=== PATIENT | female | born 1970 | race Caucasian/White ===

== ENCOUNTER 2021-06-28 08:06 | Emergency (ER) | payer OTHER ==
[~2021-06-28] VITALS: Ht 157.5 cm; Wt 81.6 kg
[2021-06-28 08:07] VITALS: BP 156/94
--- NOTE | 2021-06-28 08:13 | NUR ---
ARRIVAL PATIENT ARRIVED TO ED4 VIA GURNEY BY [facility], C/O NEAR SYNCOPAL EPISODE TODAY WHILE AT WORK, PATIENT STATES SHE BECAME DIZZY AND FELT LIKE SHE WAS GOING TO PASS OUT, CALLED EMS, EMS INITIATED A 18G TO LEFT AC WITH NORMAL SALINE INFUSING, GLUCOSE 90 PER EMS, BROUGHT TO THE ED FOR EVAL, DOCTOR FORREST NOTIFIED OF PATIENT'S ARRIVAL.
--- NOTE | 2021-06-28 08:44 | ER.PDOC ---
General Chief Complaint: Syncope Stated Complaint: NEAR SYNCOPE Time seen by MD: 08:27 Source: patient Exam Limitations: no limitations History of Present Illness Initial Comments This is a 50-year-old female who comes to the emergency department complaining of not feeling well. She states she woke up this way this morning with dizziness and feeling like she is about to pass out. Someone told her at work that she looked pale. She could feel her heart beating in her chest. She d enied any chest pain, she did state that she had some shortness of breath over the past couple of days. She has had cough and cold symptoms for these last 2 days also. Prior history of hypertension for which she is taking losartan and hydrochlorothiazide. She denies any allergies.The patient is a smoker of nearly a pack a dayNo family history of coronary artery disease. Symptoms Prior to Episode: none, lightheadedness Loss of Consciousness: No Loss of Consciousness Location of Injury: None Current Symptoms: back to normal Allergies: Coded Allergies: coconut (Verified Allergy, Unknown, 06/28/21) Past Medical History Medical History: hypertension Surgical History: tonsillectomy Social History Alcohol Use: occassionally Drug Use: none Review of Systems Constitutional: denies no symptoms reported, denies see HPI, denies chills, denies diaphoresis, denies fever, denies malaise, denies weakness, denies other EENTM: denies no symptoms reported, denies see HPI, denies eye pain, denies blurred vision, denies tearing, denies double vision, denies ear pain, denies ear discharge, denies nose pain, denies nose congestion, denies throat pain, denies throat swelling, denies mouth pain, denies mouth swelling, denies other Respiratory: denies no symptoms reported, denies see HPI; cough; denies orthopnea; shortness of breath; denies stridor, denies wheezing, denies other Cardiovascular: denies no symptoms reported, denies see HPI, denies chest pain, denies edema, denies palpitations, denies syncope, denies other Gastrointestinal: denies no symptoms reported, denies see HPI, denies abdominal pain, denies constipation, denies diarrhea, denies nausea, denies vomiting, denies other Genitourinary: denies no symptoms reported, denies see HPI, denies discharge, denies dysuria, denies frequency, denies hematuria, denies pain, denies other Musculoskeletal: denies no symptoms reported, denies see HPI, denies back pain, denies gout, denies joint pain, denies joint swelling, denies muscle pain, denies muscle stiffness, denies neck pain, denies other Skin: denies no symptoms reported, denies see HPI, denies change in color, denies change in hair/nails, denies dryness, denies lesions, denies lumps, denies rash, denies other Psychiatric/Neurological: denies no symptoms reported, denies see HPI, denies anxiety, denies depressed, denies emotional problems, denies headache, denies numbness, denies paresthesia, denies pre-existing deficit, denies seizure, denies tingling, denies tremors; weakness; denies other All Other Systems: Reviewed and Negative Physical Exam General Appearance: WD/WN, Moderate Distress HEENT: PERRL/EOMI, Normal ENT Inspection, TMs Normal, Pharynx Normal Neck: Non-Tender, Full Range of Motion, Supple, Normal Inspection Cardiovascular/Respiratory: Regular Rate, Rhythm, No M/R/G, Normal Peripheral Pulses, No JVD, No Respiratory Distress, Other (Crackles in the bases bilaterally right greater than left) Gastrointestinal: Normal Bowel Sounds, No Organomegaly, No Pulsatile Mass, Non Tender, Soft Extremities: Normal Range of Motion, Non-Tender, Normal Inspection, No Pedal Edema, No Calf Tenderness, Normal Capillary Refill Psychiatric: Alert, Oriented x 3 Cranial Nerves: Normal Hearing, Normal Speech, PERRL Coordination/Gait: Normal Finger to Nose, Normal Gait, Negative Romberg's Sign Motor/Sensory: No Motor Deficit, No Sensory Deficit, No Pronator Drift, Negative Babinski's Sign Skin: Normal Color, Warm/Dry Lymphatic: No Adenopathy Results/Orders Results/Orders Orders - THEA CLAYTON MD Cbc With Auto Diff (06/28/21 08:38) Comprehensive Metabolic Panel (06/28/21 08:38) D-Dimer (06/28/21 08:38) Xr Chest 1v (06/28/21 08:38) Ekg-Routine (06/28/21 08:38) Covid19 Antigen Winsome Cindy (06/28/21 08:38) Vital Signs Date Time Temp Pulse Resp B/P (MAP) Pulse Ox O2 Delivery O2 Flow Rate FiO2 06/28/21 08:07 97.1 93 18 06/28/21 08:07 97.1 93 18 156/94 (114) 97 Room Air 06/28/21 08:07 97.1 93 18 97 Laboratory Tests Test 06/28/21 08:45 White Blood Count 4.0 10^3/uL (4.5-11.0) L Red Blood Count 3.81 10^6/uL (4.00-5.20) L Hemoglobin 14.2 g/dL (12.0-15.0) Hematocrit 41.1 % (36.0-46.0) Mean Corpuscular Volume 107.9 fL (78-100) H Mean Corpuscular Hemoglobin 37.3 pg (26-34) H Mean Corpuscular Hemoglobin Concent 34.5 g/dL (33-36.5) Red Cell Distribution Width 12.4 % (11.5-14.5) Platelet Count 204 10^3/uL (150-400) Mean Platelet Volume 9.1 fL (7.8-11.0) Neutrophils (%) (Auto) 75.0 % (41.0-85.0) Lymphocytes (%) (Auto) 18.3 % (24.0-44.0) L Monocytes (%) (Auto) 5.8 % (5.0-12.0) Neutrophils # (Auto) 3.0 10^3/uL (1.8-7.7) Lymphocytes # (Auto) 0.73 10^3/uL1 (1.0-4.8) L Monocytes # (Auto) 0.2 10^3/uL (0.3-0.8) L Absolute Immature Granulocyte (auto 0.01 10^3 u/L (0-2) Absolute Eosinophils (auto) 0.0 10^3/uL (0.0-0.2) Immature Granulocytes % 0.30 % (0.00-0.50) Eosinophils % 0.3 % (0.0-5.0) Basophils % 0.3 % (0.0-0.2) H Basophils # 0.0 10^3/uL (0.0-0.1) D-Dimer 0.37 mg/L (0.19-0.49) Sodium Level 135 mmol/L (132-145) Potassium Level 3.2 mmol/L (3.6-5.2) L Chloride Level 96.0 mmol/L (96-109) Carbon Dioxide Level 22.9 mmol/L (20.0-32) Anion Gap 19.3 Blood Urea Nitrogen 6 mg/dL (7-18) L Creatinine 0.76 mg/dL (0.59-1.40) Estimated GFR () 97.1 (>/=60) Est GFR (CKD-EPI)(Non-Afr [place]) 80.2 (>/=60) BUN/Creatinine Ratio 7.0 Glucose Level 90 mg/dL (70-110) Calcium Level 8.4 mg/dL (8.4-10.5) Total Bilirubin 0.6 mg/dL (0.2-1.0) Aspartate Amino Transferase (AST) 84 U/L (0-35) H Alanine Aminotransferase (ALT) 86 U/L (12-78) H Alkaline Phosphatase 71 U/L (50-136) Total Protein 7.2 g/dL (6.4-8.2) Albumin 3.4 g/dL (3.4-5.0) Globulin 3.8 Albumin/Globulin Ratio 0.894 Progress Progress Chest x-ray shows patchy infiltrates on the right lung base, this is associated with the patient's symptoms most likely is due to pneumonia. I will place the patient on antibiotics and cough medication and he she will follow-up with Floresita at the clinic. EKG/XRAY/CT/US EKG: NSR ER DEPARTURE Departure Time of Disposition: 09:54 Disposition: 01 HOME / SELF CARE / HOMELESS Impression: Primary Impression: Syncope and collapse Additional Impression: Pneumonia Condition: Stable Patient Instructions: Pneumonia, Adult Additional Instructions: Follow-up with your regular doctor soon as possible, take antibiotics until they are all gone. Return to the emergency department if your symptoms worsen in any way. Duration or Time Spent with Pa: Unknown Justification of Admit/Observ Is this patient coming directl: No Admit to Inpatient (Expected t: No Place in Outpatient Status for: No Place patient in Same Day Surg: No Place patient in outpatient/CL: No *Level of Care/Services Provid: OTHER Admit Criteria Met: NO Justification Content JUSTIFICATION FOR ADMISSION Instructions 1. Open link in Mobile [employer] Browser. [email or web address] 2. Copy and paste data needed to meet the Admit Criteria. 3. Modify and document the needful data to meet the Admit Criteria. Problem Qualifiers Additional Impression: Pneumonia Pneumonia type: due to unspecified organism Laterality: right Lung location: lower lobe of lung Qualified Codes: J18.9 - Pneumonia, unspecified organism THEA CLAYTON MD Jun 28, 2021 08:44
[2021-06-28 08:51] LABS: BASOPHIL % 0.3 % (0.0-0.2); EOSINOPHIL % 0.3 % (0.0-5.0); LYMPHOCYTES # 0.73 10^3/uL1 (1.0-4.8); LYMPHOCYTES % 18.3 % (24.0-44.0); MEAN CORP HGB 37.3 pg (26-34); MONOCYTES # 0.2 10^3/uL (0.3-0.8); MONOCYTES % 5.8 % (5.0-12.0); PLATELET COUNT 204 10^3/uL (150-400); RED CELL DISTRIBUTION WIDTH 12.4 % (11.5-14.5)
[2021-06-28 09:07] LABS: CARBON DIOXIDE 22.9 mmol/L (20.0-32)
--- NOTE | 2021-06-28 09:34 | DIREP ---
PROCEDURE:CHEST 1 VIEW COMPARISON:None. INDICATIONS:near syncope, crackles in lungs FINDINGS: LUNGS/PLEURA:Patchy infiltrate and/or subsegmental atelectasis is seen in the medial right lung base. VASCULATURE:Normal. Unremarkable pulmonary vasculature. CARDIAC:Normal. No cardiac silhouette abnormality or cardiomegaly. MEDIASTINUM:Normal. No visible mass or adenopathy. BONES:Normal. No fracture or visible bony lesion. OTHER:Negative. CONCLUSION:Findings of patchy infiltrate and/or subsegmental atelectasis in the medial right lung base. Dictated by: Armando Espinoza M.D. on 06/28/2021 at 09:32 AM
[2021-06-28 10:03] VITALS: BP 138/83
--- NOTE | 2021-06-28 14:59 | PCM.EKG ---
[facility] Test Date: 2021-06-28 Test Time: 09:01:37 Pat Name: ALEXI LANDA [facility]: [id number] Room: Gender: F Head Rose Grower: TIFFANIE : 1970 Requested By: THEA JUNIOR Order Number: [id number] Reading MD: Thea Junior Measurements Intervals [place] Rate: 78 P: 66 MI: 149 QRS: 46 QRSD: 88 T: 37 QT: 411 QTc: 469 Interpretive Statements Sinus rhythm Borderline low voltage, extremity leads No previous ECG available for comparison Electronically Signed On 06-29-2021 6:41:56 [employer] by Thea Junior Please click the below link to view image of tracing.
== END 2021-06-28 10:07 | disposition home or self-care (01) ==
LOC: ER 08:06
DX: J18.9 Pneumonia, unspecified organism (principal); R55 Syncope and collapse; I10 Essential (primary) hypertension; Z82.49 Family history of ischemic heart disease and other diseases of the circulatory system
CPT/HCPCS: 71045; 80053; 85025; 85379; 93005; 99285